=== PATIENT | female | born 2005 | race African-American/Black ===

== ENCOUNTER 2024-08-07 19:37 | Emergency (ER) | payer MEDICAID ==
[~2024-08-07] VITALS: Ht 167.6 cm; Wt 82.0 kg
[2024-08-07 19:40] VITALS: O2SAT 99
[2024-08-07] MEDS: IBUPROFEN 800MG TABLET PO ONE (21:30)
[2024-08-07] MEDS: ACETAMINOPHEN 325MG TABLET PO ONE (21:30)
[2024-08-07] MEDS ORDERED: TOPUD MT (21:49)
[2024-08-07] MEDS ORDERED: ONDA4TAB50 MT (21:49)
[2024-08-07] MEDS ORDERED: DEXT30SU17 MT (21:49)
[2024-08-07] MEDS ORDERED: IBUP-1525 MT (21:49)
[2024-08-07 22:15] VITALS: BP 117/75; PULSE 82; RESP 20; TEMP 36.94740; O2SAT 100
== END 2024-08-07 22:15 | disposition home or self-care (01) ==
LOC: ER 19:37
DX: J20.9 Acute bronchitis, unspecified (principal); Z79.899 Other long term (current) drug therapy
CPT/HCPCS: 71045; 99283